=== PATIENT | male | born 1960 | race African-American/Black ===

== ENCOUNTER → 2016-10-13 | Outpatient (REF) ==
[~2016-10-13] MED LIST: AMOXICILLIN 8751 TAB PO; ASPIRIN 32325 MG/TAB PO; CIPRO 250MG TA250 MG PO; COLACE 100100 MG/CAP PO; IBU400 MG; NO HOME MEDICATIONS; NORCO 325 MG-51 TAB PO; PERCOCET 325 MG1 TA2 PO; PYRIDIUM200 M1 PO
== END ==
LOC: WSOH 08:00
DX: Z02.4 Encounter for examination for driving license (principal)

== ENCOUNTER → 2017-10-17 | Outpatient (REF) | LOC: ZLAB.WCH 14:33 | DX: Z01.89 Encounter for other specified special examinations (principal) | CPT/HCPCS: G0103 ==

== ENCOUNTER → 2020-05-06 | Outpatient (CLI) | payer BC | LOC: COL.RAD 07:09 | DX: N28.1 Cyst of kidney, acquired (principal); Z98.890 Other specified postprocedural states; Z90.6 Acquired absence of other parts of urinary tract; Z85.51 Personal history of malignant neoplasm of bladder ==

== ENCOUNTER → 2021-05-12 | Outpatient (CLI) | payer BC | LOC: COL.RAD 07:17 | DX: Z85.51 Personal history of malignant neoplasm of bladder (principal) ==